=== PATIENT | male | born 1960 ===

== ENCOUNTER 2020-12-21 04:55 | Day surgery (SDC) | payer OTHER ==
[2020-12-20 11:35] VITALS: BMI 25.5
[2020-12-21] MEDS ORDERED: LIDOCAINE HCL 1%, 10 MG/ML (20ML VIAL) ONE ×2 (12:16→13:11)
[2020-12-21] MEDS ORDERED: BUPIVACAINE HCL 100 ML ONE (12:17)
[2020-12-21] MEDS ORDERED: BENZOIN/ALOE VERA/STORAX/TOLU 58 ML BOTTLE ONE (12:17)
[2020-12-21] MEDS ORDERED: BUPIVACAINE HCL 50 ML ONE (12:22)
[2020-12-21] MEDS ORDERED: MIDAZOLAM HCL 2 MG/2 ML SINGLE DOSE VIAL ONE ×5 (12:40→14:03)
[2020-12-21] MEDS ORDERED: PROPOFOL 20 ML ONE (13:09)
[2020-12-21] MEDS ORDERED: ceFAZolin 2 GRAM PREMIX BAG IVPB ONE (13:10)
[2020-12-21] MEDS ORDERED: LIDOCAINE HCL 1%, 10 MG/ML (20ML VIAL) NR ONE (13:17)
[2020-12-21] MEDS ORDERED: BUPIVACAINE HCL/PF 0.5% (5 MG/ML) 30 ML VIAL IJ ONE (14:29)
[2020-12-21] MEDS ORDERED: PROMETHAZINE HCL 25 MG/1 ML VIAL IVPUSH PRN (14:40)
[2020-12-21] MEDS ORDERED: oxyCODONE HCL 5 MG TABLET PO PRN (14:40)
[2020-12-21] MEDS ORDERED: ONDANSETRON 4 MG/2 ML VIAL IVPUSH PRN (14:40)
[2020-12-21 16:44] VITALS: BP 141/66; PULSE 70; TEMP 97.8
== END 2020-12-21 16:30 | disposition home or self-care (01) ==
LOC: JASU-SURG 04:55
PROVIDERS: ATTEND Podiatrist Foot Surgery
PROC: 0QSN04Z Reposition Right Metatarsal with Internal Fixation Device, Open Approach (ICD-10-PCS; principal; 2020-12-21 13:00)
DX: M20.11 Hallux valgus (acquired), right foot (principal)
CPT/HCPCS: 88304-TC; 88311-TC; 94760